=== PATIENT | male | born 1985 | race Hispanic/Latino ===

== ENCOUNTER 2017-12-11 18:43 | Emergency (ER) | payer MEDICAID, OTHER ==
[2017-12-11 18:43] VITALS: BMI 37.3
[2017-12-11] MEDS ORDERED: Iohexol 240 (50 ml) PO ONE (19:23)
[2017-12-11] MEDS ORDERED: Sodium Chloride 0.9% 1,000 ML IV STA (19:25)
--- NOTE | 2017-12-11 19:29 | ED PDOC ---
HPI: Abdomen Time Seen by Provider: 12/11/17 19:10 Chief Complaint (Nursing): GI Problem Chief Complaint (Provider): RECTAL BLEEDING History Per: Patient (32 Y/O MALE WITH COMPLAINT RECTAL BLEEDING ASSOCIATED WITH LOWER ABDOMINAL PRESSURE X 3 DAYS. STATES BLEEDING APPEARED LIKE JOSE BLOOD AND DIARRHEA. NO VOMITING. IS ON 9TH DAY OF KEFLEX FOR INFECTION OF RIGHT EYE PROSTHESIS. NO H/O CDIF/ULCERATIVE COLITIS.) Past Medical History Reviewed: Historical Data, Nursing Documentation, Vital Signs Vital Signs: Last Vital Signs Temp 98.1 F 12/11/17 20:12 Pulse 86 12/11/17 20:12 Resp 18 12/11/17 20:12 BP 149/96 H 12/11/17 20:12 Pulse Ox 100 12/11/17 20:12 - Medical History PMH: Depression - Family History Family History: States: No Known Family Hx - Immunization History Hx Tetanus Toxoid Vaccination: No Hx Influenza Vaccination: No - Allergies Allergies/Adverse Reactions: Allergies Allergy/AdvReac Type Severity Reaction Status Date / Time No Known Allergies Allergy Verified 11/23/17 14:32 Review of Systems ROS Statement: Except As Marked, All Systems Reviewed And Found Negative Gastrointestinal: Positive for: Abdominal Pain, Hematochezia Physical Exam - Reviewed Nursing Documentation Reviewed: Yes Vital Signs Reviewed: Yes - Physical Exam Appears: Positive for: Well, Non-toxic, No Acute Distress Head Exam: Positive for: ATRAUMATIC, NORMAL INSPECTION, NORMOCEPHALIC Skin: Positive for: Normal Color, Warm, DRY Eye Exam: Positive for: EOMI, Normal appearance, PERRL ENT: Positive for: Normal ENT Inspection Neck: Positive for: Normal, Painless ROM Cardiovascular/Chest: Positive for: Regular Rate, Rhythm Respiratory: Positive for: CNT, Normal Breath Sounds Gastrointestinal/Abdominal: Positive for: Normal Exam, Bowel Sounds, Soft, Tenderness (MILD EPIGASTRIC TENDERNESS) Back: Positive for: Normal Inspection Rectal: Positive for: Hemorrhoids (NO OBVIOUS BLEEDING NOTED IN STOOL. NO MELENA NOTED.) Extremity: Positive for: Normal ROM Neurologic/Psych: Positive for: Alert, Oriented - Laboratory Results Result Diagrams: 12/11/17 19:30 12/11/17 19:30 - Progress ED Course And Treament: cdiff toxin negative CT abd/pelvis: no acute disease Disposition - Clinical Impression Clinical Impression: Hematochezia - Patient ED Disposition Is Patient to be Admitted: No - Disposition Referrals: Keshav Gaston MD, PhD [Staff Provider] - Disposition: Routine/Home Disposition Time: 23:33 Condition: FAIR Instructions: Bloody Stools, Adult (DC) Forms: [place] ([place]ian)
[2017-12-11] MEDS ORDERED: Iohexol 240 (50 ml) ONE (19:33)
[2017-12-11 19:56] LABS: BASO # 0.1 K/uL (0.0-0.2); BASO % 0.7 % (0.0-2.0); EOS # 0.4 K/uL (0.0-0.7); EOS % 3.4 % (0.0-4.0); HEMOGLOBIN 16.6 g/dL (12.0-18.0); LYMPH # 3.3 K/uL (1.0-4.3); LYMPH % 29.1 % (20.0-40.0); MEAN CELL VOLUME 90.1 fl (80.0-94.0); MEAN CORPUSCULAR HEMOGLOBIN 31.5 pg (27.0-31.0); MEAN CORPUSCULAR HGB CONC 34.9 g/dL (33.0-37.0); MEAN PLATELET VOLUME 9.9 fl (7.2-11.7); MONO # 0.8 K/uL (0.0-0.8); MONO % 7.3 % (0.0-10.0); NEUT # 6.7 K/uL (1.8-7.0); NEUT % 59.5 % (50.0-75.0); NRBC % 0.2 % (0.0-0.0); RBC 5.27 Mil/uL (4.40-5.90); RED CELL DISTRIBUTION WIDTH 12.9 % (11.5-14.5); WHITE BLOOD COUNT 11.3 K/uL (4.8-10.8)
[2017-12-11 20:09] LABS: PARTIAL THROMBOPLASTIN TIME 35.3 Seconds (25.6-37.1); PROTHROMBIN TIME 10.6 Seconds (9.8-13.1)
[2017-12-11 20:11] LABS: ALB/GLOB RATIO 1.4 (1.0-2.1); ALT/SGPT 68 U/L (21-72); AST/SGOT 46 U/L (17-59); BLOOD UREA NITROGEN 18 mg/dl (9-20); CALCIUM 9.7 mg/dL (8.4-10.2); GFR AFRICAN-AMERICAN > 60; GFR NON-AFRICAN AMERICAN > 60
[2017-12-11] MEDS ORDERED: Iohexol 300 100 ML IJ ONE (22:35)
--- NOTE | 2017-12-11 23:14 | CT ---
EXAM: CT Abdomen and Pelvis With Intravenous Contrast CLINICAL HISTORY: 32 years old, male; Pain; Other: Abd pain/rectal bleeding; Patient HX: Hemorrhoids TECHNIQUE: Axial computed tomography images of the abdomen and pelvis with intravenous contrast. All CT scans at this facility use one or more dose reduction techniques, viz.: automated exposure control; ma/kV adjustment per patient size (including targeted exams where dose is matched to indication; i.e. head); or iterative reconstruction technique. Coronal and sagittal reformatted images were created and reviewed. CONTRAST: 98 mL of OMNIPAQUE administered intravenously. COMPARISON: No relevant prior studies available. FINDINGS: Lower thorax: No acute findings. ABDOMEN: Liver: Unremarkable. No mass. Gallbladder and bile ducts: Unremarkable. No calcified stones. No ductal dilation. Pancreas: Unremarkable. No mass. No ductal dilation. Spleen: Unremarkable. No splenomegaly. Adrenals: Unremarkable. No mass. Kidneys and ureters: Unremarkable. No solid mass. No hydronephrosis. Stomach and bowel: Unremarkable. No obstruction. Appendix: No findings to suggest acute appendicitis. PELVIS: Bladder: Unremarkable. No mass. Reproductive: Unremarkable as visualized. ABDOMEN and PELVIS: Intraperitoneal space: Unremarkable. No free air. No significant fluid collection. Bones/joints: No acute fracture. No dislocation. Soft tissues: Unremarkable. Vasculature: Unremarkable. No abdominal aortic aneurysm. Lymph nodes: Unremarkable. No enlarged lymph nodes. IMPRESSION: No acute abnormality in the abdomen, or pelvis. Remainder of findings as above.
[2017-12-12 00:20] VITALS: BP 128/68; PULSE 84; RESP 16; TEMP 98.2; O2SAT 97
== END 2017-12-12 00:27 | disposition home or self-care (01) ==
LOC: H.ER 18:43
DX: K92.1 Melena (principal); Z86.59 Personal history of other mental and behavioral disorders
CPT/HCPCS: 74177; 80053; 84443; 85025; 85610; 85730; 86850; 86900; 87230; 96361; 96374; 99283; C9113; G0328; J7040; Q9966; Q9967